=== PATIENT | female | born 1945 | race African-American/Black ===

== ENCOUNTER 2019-03-13 21:39 | Inpatient (IN) | payer MEDICARE, MEDICAID ==
[~2019-03-13] VITALS: Ht 166.4 cm; Wt 56.0 kg
[2019-03-13] MEDS ORDERED: KETOROLAC 15MG/ML VIAL IV ONE (22:45)
[2019-03-13 22:53] LABS: BASOPHILS % 1.8 % (0.0-2.0); EOSINOPHILS % 0.2 % (0.0-5.0); HEMATOCRIT. 42.1 % (36.0-48.0); HEMOGLOBIN. 14.5 g/dL (12.0-16.0); MEAN CORPUSCULAR HEMOGLOBIN 40.7 pg (28.0-32.0); MEAN PLATELET VOLUME 7.4 fl (7.4-10.4); MONOCYTES % 4.5 % (2.0-8.0); NEUTROPHILS % 64.5 % (40.0-76.0); PLATELET 265 x1000/uL (130-400); RED BLOOD CELL COUNT 3.56 mill/uL (4.2-5.4); RED CELL DISTRIBUTION WIDTH 14.7 % (11.6-14.6)
[2019-03-13 22:57] LABS: CHLORIDE 105 mEq/L (98-107)
[2019-03-13] MEDS ORDERED: LABETALOL HCL 20MG/4ML CARPUJECT IV ONE (23:00)
[2019-03-13 23:09] LABS: PLATELET ESTIMATE NORMAL
[2019-03-14] MEDS ORDERED: LABETALOL 5MG/ML SYR 20 MG/4 ML SYRINGE IV NR
[2019-03-14] MEDS ORDERED: MORPHINE SULFATE 4 MG/ML CPJ (NOT FOR IM USE) IV NR
[2019-03-14] MEDS ORDERED: METOPROLOL TARTRATE 100MG TABLET PO ONE (00:45)
[2019-03-14 01:00] LABS: CLARITY URINE CLEAR (CLEAR); COLOR URINE YELLOW (YELLOW); KETONES URINE TRACE (NEGATIVE); LEUKOCYTE ESTERASE URINE NEGATIVE (NEGATIVE); NITRITE URINE NEGATIVE (NEGATIVE); OCCULT BLOOD URINE TRACE (NEGATIVE); PROTEIN URINE 2+ (NEGATIVE); SPECIFIC GRAVITY URINE 1.013 (1.005-1.030)
[2019-03-14] MEDS ORDERED: DEXT 5%/0.45% NACL 1000ML 1,000 ML IV SCH (03:21)
[2019-03-14] MEDS ORDERED: CLONIDINE 0.1MG TABLET PO PRN (03:30)
[2019-03-14] MEDS ORDERED: DOCUSATE SODIUM 100MG CAPSULE PO PRN (03:30)
[2019-03-14] MEDS ORDERED: ACETAMINOPHEN 325MG TABLET PO PRN (03:30)
[2019-03-14] MEDS ORDERED: MORPHINE SULFATE 2 MG/ML CPJ (NOT FOR IM USE) IV PRN (03:30)
[2019-03-14] MEDS ORDERED: ONDANSETRON HCL 4MG/2ML INJ IV PRN (03:30)
[2019-03-14] MEDS ORDERED: HYDRALAZINE 20MG/ML VIAL IV PRN (03:30)
[2019-03-14] MEDS ORDERED: AMLODIPINE 10MG TABLET PO SCH (09:00)
[2019-03-14] MEDS ORDERED: HYDRALAZINE 20MG/ML VIAL IV ONE (09:15)
[2019-03-14 10:30] VITALS: BP 163/92
[2019-03-14] MEDS ORDERED: LEVOFLOXACIN 500MG PREMIX 100 ML IV SCH (12:00)
[2019-03-14] MEDS: FAMOTIDINE 20MG/2ML VIAL IV SCH (12:09)
[2019-03-14] MEDS: LISINOPRIL 20MG TABLET PO SCH (12:10)
[2019-03-14] MEDS: ENALAPRIL 1.25MG/ML VIAL 1ML IV SCH ×2 (12:13→19:06)
[2019-03-14] MEDS: HYDRALAZINE HCL 50MG TABLET PO SCH ×2 (15:36→22:36)
[2019-03-14 20:00] VITALS: BP 111/63
[2019-03-15] VITALS: BP 111/67
[2019-03-15 04:00] VITALS: BP 121/76
[2019-03-15] MEDS: ENALAPRIL 1.25MG/ML VIAL 1ML IV SCH ×2 (05:59)
[2019-03-15] MEDS: HYDRALAZINE HCL 50MG TABLET PO SCH (05:59)
[2019-03-15 07:45] LABS: BASOPHILS % 0.5 % (0.0-2.0); EOSINOPHILS % 0.3 % (0.0-5.0); HEMATOCRIT. 41.4 % (36.0-48.0); LYMPHOCYTES % 32.8 % (20.0-50.0); MEAN CORPUSCULAR HEMOGLOBIN 40.2 pg (28.0-32.0); MEAN CORPUSCULAR VOLUME 118.5 fL (81.0-99.0); MEAN PLATELET VOLUME 7.5 fl (7.4-10.4); MONOCYTES % 9.4 % (2.0-8.0); PLATELET 290 x1000/uL (130-400); RED BLOOD CELL COUNT 3.49 mill/uL (4.2-5.4); RED CELL DISTRIBUTION WIDTH 15.4 % (11.6-14.6)
[2019-03-15 07:50] LABS: CHLORIDE 101 mEq/L (98-107)
[2019-03-15 08:00] VITALS: BP 108/71
[2019-03-15] MEDS: LISINOPRIL 20MG TABLET PO SCH (08:56)
[2019-03-15] MEDS: FAMOTIDINE 20MG/2ML VIAL IV SCH (08:59)
[2019-03-15 12:00] VITALS: BP 105/70
[2019-03-15 12:25] VITALS: BP 105/70
== END 2019-03-15 13:20 | disposition home or self-care (01) | DRG 199 ==
LOC: ER 21:39 → 6WST 03-14 02:05 → ENRESERV 03-14 07:01 → CANRESERV 03-14 07:01 → ENRESERV 03-14 09:54
PROVIDERS: ADMIT Hospitalist; ATTEND Hospitalist
DX: I16.0 Hypertensive urgency (principal); K80.20 Calculus of gallbladder without cholecystitis without obstruction; M54.30 Sciatica, unspecified side; I10 Essential (primary) hypertension; Z91.19 Patient's noncompliance with other medical treatment and regimen
CPT/HCPCS: 36415; 71045; 74176; 76705; 81003; 83880; 84484; 93005; 93970; 96374; 99291; J0360; J1885; J1956; J2270; J3490; J7040